=== PATIENT | female | born 1995 | race Caucasian/White ===

== ENCOUNTER 2022-04-05 16:28 | Observation (INO) | payer BC, SELFPAY ==
--- NOTE | 2022-04-05 20:38 | OBADM ---
This patient, Nilda Díaz, admitted to the OB room Labor/Delivery/Recovery 105 for observation. Patient/family oriented to hospital policies and general routines including ID bracelet, bed and alarms, visiting hours, pain management, procedures, bathroom and other care routines, personal items, smoking policy, room service/diet, and visiting hours. Patient/Family are encouraged to report perceived risks to care and to ask questions if they do not understand what they are told or what they should do.
--- NOTE | 2022-04-24 13:13 | PM.OBTRLD ---
OB - Triage/Final Diagnosis Visit Information Date of evaluation: 05/05/22 Reason for evaluation: threatened labor Comments/Additional reasons for admission: I have assessed the risk for this patient, Nilda Díaz, and determined that she would benefit from observation care.
== END 2022-04-05 20:22 | disposition home or self-care (01) ==
PROVIDERS: Admitting Provider Obstetrics & Gynecology Gynecology; Visit Provider Obstetrics & Gynecology Gynecology
DX: O47.9 False labor, unspecified (principal); Z3A.00 Weeks of gestation of pregnancy not specified
CPT/HCPCS: G0378; G0379

== ENCOUNTER 2022-04-21 04:59 | Inpatient (IN) | payer BC, SELFPAY ==
[2022-04-21] VITALS (132 sets, daily range): BP systolic 114–168; BP diastolic 67–111; PULSE 69–114; RESP 18; TEMP 36.4–37.1; O2SAT 95–100; BMI 34.2
[2022-04-21 05:45] LABS: Basophils Percent Auto 0.3 % (0.2-1.2); Eosinophils Absolute Auto 0.3 K/mm3 (0-0.3); Eosinophils Percent Auto 2.7 % (0-4.4); Hematocrit 30.6 % (37.0-47.0); Hemoglobin 9.7 g/dL (12.0-15.0); Immature Granulocyte Absolute 0.06 K/mm3 (0.00-0.031); Immature Granulocyte Percent A 0.5 % (0-0.5); Lymphocytes Absolute Auto 2.93 K/mm3 (0.9-3.2); Lymphocytes Percent Auto 24.6 % (18.3-44.2); Mean Corpuscular HGB Conc 31.7 g/dl (32-36); Mean Corpuscular Hemoglobin 26.4 pg (26-34); Mean Corpuscular Volume 83.4 fl (80-100); Monocytes Absolute Auto 0.9 K/mm3 (0.1-0.6); Monocytes Percent Auto 7.8 % (2.6-8.5); Neutrophils Absolute Auto 7.6 K/mm3 (1.3-6.7); Neutrophils Percent Auto 64.1 % (45.5-73.1); Platelet Count Result 188 k/mm3 (150-375); Red Blood Count 3.67 M/mm3 (4.2-5.4); Red Cell Distribution Width 15.2 % (11.5-14.5); White Blood Count 11.9 K/mm3 (4.5-10.0)
[2022-04-21] MEDS: LACTATED RINGERS 1,000 ML 125 ML IV CONT ×3 (05:48→12:38)
[2022-04-21] MEDS: AMPICILLIN 2 GM/NS 100 ML 2 GM/100 ML BAG IVPB (05:49)
--- NOTE | 2022-04-21 06:10 | LDADM ---
This patient, Nilda Díaz, was admitted to Labor/Delivery/Recovery 105 on 04/21/22 at 04:59. Plans for labor, pain management and were discussed with patient. Patient/family oriented to hospital policies and general routines including ID bracelet, bed and alarms, visiting hours, pain management, procedures, bathroom and other care routines, personal items, smoking policy, room service/diet and guest tray routines, security routines, and visiting hours. Patient/Family are encouraged to report perceived risks to care and to ask questions if they do not understand what they are told or what they should do. See OBIX for further documentation.
[2022-04-21] MEDS: OXYTOCIN 30 UNITS/NS 500 ML 30 UNITS/500 ML BAG IV CONT (06:19)
[2022-04-21] MEDS: LABETALOL HCL INJ 100 MG/20 ML VIAL 20 MG IV PUSH (06:44)
[2022-04-21 07:18] LABS: Alanine Aminotransferase 15 U/L (6-35); Albumin Level 3.5 g/dL (3.5-5.1); Alkaline Phosphatase 125 U/L (38-126); Anion Gap 11 mmol/L (8-16); Aspartate Amino Transferase 27 U/L (14-36); Bilirubin,Total 0.4 mg/dL (0.2-1.3); Blood Urea Nitrogen 9 mg/dL (7-17); Calcium 8.7 mg/dL (8.4-10.2); Carbon Dioxide 20 mmol/L (22-30); Chloride 105 mmol/L (98-107); Estimated CRCL calculation 170 ml/min; Estimated Glomerular Filt Rate > 60; Glucose 91 mg/dL (65-110); Potassium 3.5 mmol/L (3.4-5.0); Sodium 136 mmol/L (137-145); Uric Acid 5.2 mg/dL (2.5-7.5)
[2022-04-21 07:29] LABS: Creatinine Urine 60.9 mg/dL; Total Protein Urine Random 11 mg/dL; Ur Ttl Prot Creatinine Ratio 0.18 mg/mg (0-0.20)
[2022-04-21] MEDS: AMPICILLIN 1 GM/NS 50 ML 1 GM/50 ML BAG IVPB ×2 (09:58→14:02)
--- NOTE | 2022-04-21 11:43 | WPDOBADMIT ---
Obstetrics - Admit Note Admission Note: record reviewed. No pertinent additions to the history and/or any subsequent changes in the physical findings that are not consistent with the expected course of the were found. Additions to the history and/or subsequent changes in the physical findings follow. Pt arrived with severe range BPs. Endorses much anxiety. Treated with Labetalol 20mg IVP d/t sustained severe range BPs. BPs responded and are now normal to mild range. CBC, CMP, Uric acid, and UPC ratio all WNL. Continued anemia noted on CBC.
--- NOTE | 2022-04-21 11:46 | PM.OBPNLAB ---
Pain Control Date/time seen: 04/21/22 11:35 Pain control: tolerating well Pelvic Exam Dilation (cm): 3 (3.5) Effacement (%): 60 station: -3 Amniotic membrane status: Intact Contractions Monitor mode: External Contraction frequency: 4 (2-4) Contraction duration: 60 (60-80) Contraction pattern: Irregular Contraction phase: Contraction Contraction intensity: Moderate Status status: Category l Assessment and Plan Pitocin rate (mU/min): 16 (Decreased to 8 after AROM) Assessment: induction ongoing Plan: continuous present management Comments: CNM to bedside. Nilda is feeling some occasional mild contractions. Declines need for epidural at this time. Discussed present management of labor and offered AROM. Discussed risks and benefits and pt desires to proceed. Amniotomy performed with initally no return of fluid. Repositioned pt to semi fowlers and pt reported a small gush of fluid. Clear amniotic fluid noted with small amt of bloody show. Pitocin decreased to 8mU/min. Anticipate vaginal .
--- NOTE | 2022-04-21 12:32 | WPDANESEPP ---
Anes - Eval Pre Procedure Procedure: Labor Epidural Date/Time: 04/21/22 12:32 Surgeon: Annie Preop Diagnosis: Labor Pain Pre Op Diagnosis: IOL Patient Data Age: 26 Gender: F Height: 1.7 m Weight: 99 kg Last Vital Signs Temp 36.9 C 04/21/22 12:00 Pulse 89 04/21/22 12:31 BP 144/103 H 04/21/22 12:31 Pulse Ox 99 04/21/22 06:42 O2 Del Method Room Air 04/21/22 06:30 Allergies Allergy/AdvReac Type Severity Reaction Status Date / Time No Known Allergies Allergy Verified 04/21/22 06:20 Home Medications Medication Instructions Recorded Confirmed Type ergocalciferol (vitamin D2) 1,250 1,250 mcg PO WEEKLY 03/30/22 04/21/22 History mcg (50,000 unit) capsule (Vitamin D2) fluoxetine 10 mg tablet 10 mg PO DAILY 03/30/22 04/21/22 History labetalol 100 mg tablet 50 mg PO DAILY 03/30/22 04/21/22 History prenat.vits,jerod,qjj-moam-pvcvs 1 tablet PO DAILY 03/30/22 04/21/22 History Laboratory Tests 04/21/22 04/21/22 04/21/22 05:34 05:34 05:34 WBC 11.9 K/mm3 H K/mm3 (4.5-10.0) RBC 3.67 M/mm3 L M/mm3 (4.2-5.4) Hgb 9.7 g/dL L g/dL (12.0-15.0) Hct 30.6 % L % (37.0-47.0) MCV 83.4 fl fl (80-100) MCH 26.4 pg pg (26-34) MCHC 31.7 g/dl L g/dl (32-36) RDW 15.2 % H % (11.5-14.5) Plt Count 188 k/mm3 k/mm3 (150-375) MPV 11.0 fl H fl (7.4-10.4) Immature Gran % (Auto) 0.5 % % (0-0.5) Neut % (Auto) 64.1 % % (45.5-73.1) Lymph % (Auto) 24.6 % % (18.3-44.2) [place] % (Auto) 7.8 % % (2.6-8.5) Eos % (Auto) 2.7 % % (0-4.4) Baso % (Auto) 0.3 % % (0.2-1.2) Lymph # (Auto) 2.93 K/mm3 K/mm3 (0.9-3.2) [place] # (Auto) 0.9 K/mm3 H K/mm3 (0.1-0.6) Eos # (Auto) 0.3 K/mm3 K/mm3 (0-0.3) Baso # (Auto) 0.0 K/mm3 K/mm3 (0.0-0.1) Abs Immat Gran (auto) 0.06 K/mm3 H K/mm3 (0.00-0.031) Absolute Neuts (auto) 7.6 K/mm3 H K/mm3 (1.3-6.7) Absolute Nucleated RBC 0.0 K/mm3 K/mm3 (0.0-0.012) Nucleated RBC % 0.0 % % (0.0-0.2) Sodium Potassium Chloride Carbon Dioxide Anion Gap BUN Creatinine Estim Creat Clear Calc Estimated GFR Glucose Uric Acid Calcium Total Bilirubin AST ALT Alkaline Phosphatase Total Protein Albumin U Random Total Protein Urine Creatinine Protein/Creat Ratio 2 RPR Pending Blood Type A Positive Antibody Screen Negative 04/21/22 04/21/22 06:47 06:47 WBC RBC Hgb Hct MCV MCH MCHC RDW Plt Count MPV Immature Gran % (Auto) Neut % (Auto) Lymph % (Auto) [place] % (Auto) Eos % (Auto) Baso % (Auto) Lymph # (Auto) [place] # (Auto) Eos # (Auto) Baso # (Auto) Abs Immat Gran (auto) Absolute Neuts (auto) Absolute Nucleated RBC Nucleated RBC % Sodium 136 mmol/L L mmol/L (137-145) Potassium 3.5 mmol/L mmol/L (3.4-5.0) Chloride 105 mmol/L mmol/L (98-107) Carbon Dioxide 20 mmol/L L mmol/L (22-30) Anion Gap 11 mmol/L mmol/L (8-16) BUN 9 mg/dL mg/dL (7-17) Creatinine 0.50 mg/dL L mg/dL (0.7-1.0) Estim Creat Clear Calc 170 ml/min ml/min Estimated GFR > 60 (59 - ) Glucose 91 mg/dL mg/dL (65-110) Uric Acid 5.2 mg/dL mg/dL (2.5-7.5) Calcium 8.7 mg/dL mg/dL (8.4-10.2) Total Bilirubin 0.4 mg/dL mg/dL (0.2-1.3) AST 27 U/L U/L (14-36
[2022-04-21] MEDS: ONDANSETRON INJ 4 MG/2 ML VIAL IV PUSH (12:52)
[2022-04-21] MEDS: FAMOTIDINE 20 MG/2 ML VIAL IV PUSH (14:02)
[2022-04-21] MEDS: miSOPROStol 200 MCG TABLET 800 MCG RECTAL (15:53)
--- NOTE | 2022-04-21 16:02 | PM.OBPRVD ---
OB - Delivery Note Procedure Delivery date: 04/21/22 Events: Positive Group B Strep (GBS) Induction method: AROM and Per Pitocin Protocol Delivery augmentation: Rupture of Membranes Delivery monitor: External FHT and External Uterine Route of delivery: Episiotomy description: None Laceration Description: Superficial (inner labia minora x 2, 0.5cm and 1.5 cm. No repair required. ) Specimen: No Quantitative Blood Loss (ml): 250 Anesthesia type: Epidural Disposition: Floor Narrative: CNM called when pt complete and 0 station. Patient pushed with contractions and made quick progress to . The infant head delivered in the ROP position and a loose nuchal cord was noted. With the next push the remainder of the was delivered in a somersault maneuver. The nuchal cord was then reduced and the was placed skin to skin on the maternal abdomen. After 2 minutes of life, the cord was doubly clamped and cut. Cord blood and gases were drawn. Shortly thereafter, there was a Small gush of blood from the vagina. The patient pushed once and the placenta was delivered in [place] presentation. Rectal Cytotec was given for prevention of atony given the patient's anemia. Baby Date of : 04/21/22 Time of : 13:46 Weeks of gestation at delivery: 39 gender: Female Weight (pounds): 7 Weight (ounces): 2 presentation: vertex position: Right Occiput Posterior Placenta delivery description: Spontaneous Cord Vessel Description: 3 Vessels score one minute: 8 score five minutes: 9
[2022-04-21] MEDS: TRANEXAMIC ACID 1,000 MG/10 ML AMPUL 1000 MG IV PUSH (16:09)
--- NOTE | 2022-04-21 16:10 | PM.OBDSVD ---
DS: Admitting Diagnosis Discharge Date 04/22/22 Admitting Diagnosis at 39 weeks. GBS+ Anxiety/Depression Known palpitations Fetus with small VSD DS: Discharge Diagnosis Discharge Diagnosis (1) (normal spontaneous vaginal delivery): Code(s): O80 - Encounter for full-term uncomplicated delivery Status: Acute Assessment and Plan: Intact perineum. (2) At risk for ineffective : Code(s): Z91.89 - Other specified personal risk factors, not elsewhere classified Status: Acute Assessment and Plan: Encouraged to remain in the hospital for assistance but pt declines. Discussed resources in the hospital, office, and in the community. (3) Gestational hypertension affecting third : Code(s): O13.9 - Gestational [-induced] hypertension without significant proteinuria, unspecified trimester Status: Acute Assessment and Plan: Plan to continue labetalol 100mg PO BID. Pt to call for Bps > 160/110 or for symptoms of Preeclampsia. (4) Anemia during : Code(s): O99.019 - Anemia complicating , unspecified trimester Status: Acute Assessment and Plan: FeSO4 PO BID. No dizziness with ambulations. OB - DS: Summary Hospital Course Hospital Course: uncomplicated OB Procedures : Ultrasound OB Procedures Intrapartum: Spontaneous Vag Delivery OB Procedures: : Antibiotics Peripartum Data Delivery Method: Natural Vaginal Laceration Description: Superficial Episiotomy description: None complications: none Status at Discharge Functional status at discharge: independent ambulation Time Spent with Patient Time attestation: Total time spent providing and/or coordinating discharge services: Exam Narrative: Alert and oriented. Mood is pleasant and cooperative. Urinating without difficulty. Denies passing any large clots. Perineum with minimal edema. Const: General: no acute distress and alert Orientation/consciousness: patient oriented x3 Limitations: no limitations Resp: Effort & Inspection: normal respiratory effort Auscultation: clear to auscultation bilaterally Cardio: Rate: regular rate GI: Inspection: normal to inspection Neuro: General: patient oriented x3 Extrem: General: normal to inspection Psych: Appearance: grossly normal Mental Status: mental status grossly normal Affect: normal affect Thought process: Normal thought process present DS: Data Data Completed and Pending Labs on day of discharge: Labs from last 24 hours 04/21/22 04/21/22 04/21/22 06:47 06:47 05:34 WBC RBC Hgb Hct MCV MCH MCHC RDW Plt Count MPV Immature Gran % (Auto) Neut % (Auto) Lymph % (Auto) [place] % (Auto) Eos % (Auto) Baso % (Auto) Lymph # (Auto) [place] # (Auto) Eos # (Auto) Baso # (Auto) Abs Immat Gran (auto) Absolute Neuts (auto) Absolute Nucleated RBC Nucleated RBC % Sodium 136 L Potassium 3.5 Chloride 105 Carbon Dioxide 20 L Anion Gap 11 BUN 9 Creatinine 0.50 L Estim Creat Clear Calc 170 Estimated GFR > 60 Glucose 91 Uric Acid 5.2 Calcium 8.7 Total Bilirubin 0.4 AST 27 ALT 15 Alkaline Phosphatase 125 Total Protein 7.0 Albumin 3.5 U Random Total Protein 11 Urine Creatinine 60.9 Protein/Creat Ratio 2 0.18 RPR Blood Type A Positive Antibody Screen Negative 04/21/22 04/21/22 05:34 05:34 WBC 11.9 H RBC 3.67 L Hgb 9.7 L Hct 30.6 L MCV 83.4 MCH 26.4 MCHC 31.7 L RDW 15.2 H Plt Count 188 MPV 11.0 H Immature Gran % (Auto) 0.5 Neut % (Auto) 64.1 Lymph % (Auto) 24.6 [place] % (Auto) 7.8 Eos % (Auto) 2.7 Baso % (Auto) 0.3 Lymph # (Auto) 2.93 [place] # (Auto) 0.9 H Eos # (Auto) 0.3 Baso # (Auto) 0.0 Abs Immat Gran (auto) 0.06 H Absolute Neuts (auto)
[2022-04-21] MEDS: WITCH HAZEL 40 PADS 1 PAD TOPICAL (18:07)
[2022-04-21] MEDS: IBUPROFEN 600 MG TABLET PO (18:07)
[2022-04-21] MEDS: BENZOCAINE 20% AER SPR (*SP) 56 GM CAN 1 SPRAY TOPICAL (18:08)
[2022-04-21] MEDS: LABETALOL HCL 100 MG TABLET PO (19:31)
--- NOTE | 2022-04-21 19:37 | OBPPTRN ---
Patient transferred to post room # 282 via (wheelchair). Support person present. Oriented to unit, room, information board, rooming in, admission packet and security measures. Patient verbalizes understanding.
[2022-04-21] MEDS: ACETAMINOPHEN 325 MG TABLET 650 MG PO (21:00)
[2022-04-22] VITALS (7 sets, daily range): BP systolic 124–153; BP diastolic 81–99; PULSE 68–86; RESP 16–18; TEMP 36.6–37.1; O2SAT 98–100
[2022-04-22] MEDS: IBUPROFEN 600 MG TABLET PO ×3 (00:26→14:20)
[2022-04-22] MEDS: ACETAMINOPHEN 325 MG TABLET 650 MG PO ×2 (04:01→11:22)
[2022-04-22 04:58] LABS: Hematocrit 28.2 % (37.0-47.0); Hemoglobin 8.8 g/dL (12.0-15.0)
[2022-04-22] MEDS: MULTIVIT/MIN/PREN/FOL AC/IRON TABLET 1 TAB PO (08:23)
[2022-04-22] MEDS: POLYSACCHARIDE IRON COMPLEX 150 MG CAPSULE PO ×2 (08:24→16:31)
[2022-04-22] MEDS: DOCUSATE SODIUM 100 MG CAPSULE PO ×2 (08:24→16:31)
[2022-04-22] MEDS: LABETALOL HCL 100 MG TABLET PO ×2 (08:38→16:31)
--- NOTE | 2022-04-22 11:39 | PM.OBPNVD ---
OB - PN: Subj Subjective Date/time seen: 04/22/22 11:39 Patient comments: no complaints and pain well controlled feeding status: breast and bottle feeding Narrative: Reports infant hungry and too frustrated to latch at times. Pumping and getting return of colostrum. Supplementing with formula. OB - PN: Obj Data Labs CBC & Chem 7: 04/22/22 04:47 04/21/22 06:47 Labs: Laboratory Results - last 24 hr 04/22/22 04:47 Hgb 8.8 L Hct 28.2 L OB - PN A/P Assessment and Plan (1) Gestational hypertension affecting third : Code(s): O13.9 - Gestational [-induced] hypertension without significant proteinuria, unspecified trimester Status: Acute Assessment and Plan: BPs normal to mild range. Plan to have pt check BID at home. Continue Labetalol 100mg PO BID. BP check at PP visit at hospital and one week in the office. (2) At risk for ineffective : Code(s): Z91.89 - Other specified personal risk factors, not elsewhere classified Status: Acute Assessment and Plan: Encouraged remaining in the hospital for support. Pt declined. Discussed resources at the hospital, office, and in the community. (3) (normal spontaneous vaginal delivery): Code(s): O80 - Encounter for full-term uncomplicated delivery Status: Acute Plan day: 1 Plan: discharge home Comments: Strongly desires discharge home today. Time Spent With Patient Time: Total time spent is greater than 50% in coordination of care (as documented) at patient's floor/unit and/or counseling patient: Review of Systems Review of Systems: All systems reviewed & are unremarkable except as noted in HPI and below Exam Narrative: Alert and oriented. Mood is pleasant and cooperative. Urinating without difficulty. Denies passing any large clots. Perineum with minimal edema. Const: General: no acute distress and alert Orientation/consciousness: patient oriented x3 Limitations: no limitations Resp: Effort & Inspection: normal respiratory effort Auscultation: clear to auscultation bilaterally Cardio: Rate: regular rate GI: Inspection: normal to inspection Neuro: General: patient oriented x3 Extrem: General: normal to inspection Psych: Appearance: grossly normal Mental Status: mental status grossly normal Affect: normal affect Thought process: Normal thought process present
--- NOTE | 2022-04-22 19:17 | PC.NURSE ---
Patient left unit with spouse and infant accompanied by this RN to car waiting in the [address]. Discharge teaching reviewed. All questions answered.
[2022-04-23 06:27] LABS: Rapid Plasma Reagin Non-Reactive (NonReactive)
[2022-04-24 14:19] VITALS: BP 153/91; PULSE 70; RESP 20; TEMP 36.6; O2SAT 100
== END 2022-04-22 19:17 | disposition home or self-care (01) | DRG 807 ==
LOC: ANHLDR 16:13 → ANHOB2 19:47
PROVIDERS: Advanced Practice Midwife; Admitting Provider Obstetrics & Gynecology Gynecology; Visit Provider Obstetrics & Gynecology Gynecology
DX: O99.824 Streptococcus B carrier state complicating childbirth (principal); Z37.0 Single live birth; O13.4 Gestational [pregnancy-induced] hypertension without significant proteinuria, complicating childbirth; O99.02 Anemia complicating childbirth; O70.0 First degree perineal laceration during delivery; O69.81X0 Labor and delivery complicated by cord around neck, without compression, not applicable or unspecified; O62.3 Precipitate labor; Z3A.39 39 weeks gestation of pregnancy
CPT/HCPCS: 36415; 80053; 82570; 84156; 84550; 85014; 85018; 85025; 86592; 86850; 86900; 86901; A9270; J0290; J2405; J2590; J2795; J7120

== ENCOUNTER 2022-04-24 15:46 | Outpatient (CLI) | payer BC, SELFPAY ==
[2022-04-24 16:18] LABS: Basophils Absolute Auto 0.1 K/mm3 (0.0-0.1); Basophils Percent Auto 0.5 % (0.2-1.2); Eosinophils Absolute Auto 0.6 K/mm3 (0-0.3); Eosinophils Percent Auto 5.4 % (0-4.4); Hemoglobin 9.6 g/dL (12.0-15.0); Immature Granulocyte Absolute 0.04 K/mm3 (0.00-0.031); Immature Granulocyte Percent A 0.4 % (0-0.5); Lymphocytes Absolute Auto 3.09 K/mm3 (0.9-3.2); Lymphocytes Percent Auto 27.3 % (18.3-44.2); Mean Corpuscular Hemoglobin 26.4 pg (26-34); Mean Corpuscular Volume 85.4 fl (80-100); Mean Platelet Volume 10.6 fl (7.4-10.4); Monocytes Absolute Auto 0.8 K/mm3 (0.1-0.6); Neutrophils Absolute Auto 6.7 K/mm3 (1.3-6.7); Neutrophils Percent Auto 59.4 % (45.5-73.1); Platelet Count Result 222 k/mm3 (150-375); Red Blood Count 3.63 M/mm3 (4.2-5.4); Red Cell Distribution Width 15.6 % (11.5-14.5); White Blood Count 11.3 K/mm3 (4.5-10.0)
[2022-04-24 16:28] VITALS: BP 151/95; PULSE 68
[2022-04-24 16:28] LABS: Alanine Aminotransferase 16 U/L (6-35); Albumin Level 3.9 g/dL (3.5-5.1); Alkaline Phosphatase 101 U/L (38-126); Anion Gap 10 mmol/L (8-16); Aspartate Amino Transferase 23 U/L (14-36); Bilirubin,Total 0.3 mg/dL (0.2-1.3); Blood Urea Nitrogen 11 mg/dL (7-17); Carbon Dioxide 24 mmol/L (22-30); Chloride 103 mmol/L (98-107); Estimated Glomerular Filt Rate > 60; Glucose 92 mg/dL (65-110); Potassium 3.8 mmol/L (3.4-5.0); Sodium 137 mmol/L (137-145); Uric Acid 5.7 mg/dL (2.5-7.5)
[2022-04-24 16:31] VITALS: BP 154/94; PULSE 65
[2022-04-24 16:46] VITALS: BP 156/89; PULSE 60
--- NOTE | 2022-04-24 17:03 | PC.NURSE ---
1702--Reported labs and VS to Azeb Armstrong. DC orders given.
== END 2022-04-24 17:04 | disposition home or self-care (01) ==
LOC: ANHOBOP 15:54 → ANHOBPP 15:54
PROVIDERS: Visit Provider Advanced Practice Midwife
DX: O13.9 Gestational [pregnancy-induced] hypertension without significant proteinuria, unspecified trimester (principal); Z3A.00 Weeks of gestation of pregnancy not specified
CPT/HCPCS: 36415; 80053; 84550; 85025; 99199

== ENCOUNTER 2024-07-20 15:39 | Outpatient (CLI) | payer BC, SELFPAY ==
--- NOTE | ~2024-07-20 | US_ITS ---
EXAMINATION: US OB transvaginal DATE: 07/20/2024 22:13 MANUFACTURING ENGINEER INDICATION: Dating COMPARISON: 04/08/2024 TECHNIQUE: Real-time transabdominal and transvaginal obstetric ultrasound. FINDINGS: 4 para 3 Estimated date of delivery by last menstrual period is 02/16/2025 The uterus measures 10.2 x 5.3 x 6.3 cm. A gestational sac is identified within the fundus of the uterus. A pole is identified, with a crown-rump length that measures 0.6 cm, corresponding to an approx imate gestational age of 6 weeks and 3 days. Adjacent to the gestational sac is a small focus of decreased attenuation measuring 5 mm in greatest dimension for which a small subchorionic hemorrhage is suspected. cardiac activity is identified at a rate of 150 bpm. The right ovary measures 2.1 x 1.8 x 2.6 cm. Despite prolonged interrogation, the left ovary was not visualized. Estimated date of delivery by ultrasound is 03/12/2025 IMPRESSION: Single intrauterine gestation with an approximate gestational age of 6 weeks and 3 days, with c ardiac activity identified. Small subchorionic hemorrhage measuring 5 mm in greatest dimension, for which follow-up is suggested. Reviewed, dictated and finalized at location A. FACTURING ENGINEER IMPRESSION: Single intrauterine gestation with an approximate gestational age of 6 weeks an d 3 days, with cardiac activity identified. Small subchorionic hemorrhage measuring 5 mm in greatest dimension, for which f ollow-up is suggested.
== END 2024-07-20 15:40 | disposition home or self-care (01) ==
PROVIDERS: Visit Provider Nurse Practitioner Women's Health
DX: Z36.87 Encounter for antenatal screening for uncertain dates (principal)
CPT/HCPCS: 76817

== ENCOUNTER 2025-04-23 10:39 | Outpatient (CLI) | payer BC, SELFPAY ==
--- NOTE | ~2025-04-23 | US_ITS ---
EXAMINATION: US OB transvaginal DATE: 04/23/2025 11:05 INDICATION: Gestational dating TECHNIQUE: Real-time transabdominal and transvaginal obstetric ultrasound. FINDINGS: No prior studies for comparison. The uterus measures 12.1 x 6.8 times centimeters. There is an intrauterine gestational sac, with pole identified. The crown rump length measures 2.14 cm, which correlates with a estimated gestational age of 8 weeks 5 days. heart tones are identified measuring 169 bpm. Ovaries not visualized. IMPRESSION: 1. SL IUP with an EGA of 8 weeks, 5 days (EDC by current ultrasound of 11/28/2025). Reviewed, dictated and finalized at location O. IMPRESSION: 1. SL IUP with an EGA of 8 weeks, 5 days (EDC by current ultrasound of ).
== END 2025-04-23 10:40 | disposition home or self-care (01) ==
DX: Z36.87 Encounter for antenatal screening for uncertain dates (principal)
CPT/HCPCS: 76817

== ENCOUNTER 2025-06-28 10:46 | Outpatient (CLI) | payer BC, SELFPAY ==
--- NOTE | ~2025-06-28 | US_ITS ---
EXAMINATION: US OB /maternal detail DATE: 06/28/2025 11:18 INDICATION: anatomic survey. TECHNIQUE: Real-time ultrasound of the pelvis was performed. COMPARISON: Ultrasound 04/23/2025 FINDINGS: There is a single living fetus in breech presentation. The placenta is posterior, 2.9 cm from the cervix. heart rate is 143 beats per minute (bpm). The cervical length is 4.0 cm on transabdominal images, which is normal. The amniotic fluid volume is subjectively normal. The following biometric data were obtained: Biparietal diameter (BPD): 4.1 cm; head circumference (HC): 15.8 cm; abdominal circumference (AC): 13.0 cm; femur length (FL): 2.6 cm. These measurements are concordant. Estimated weight is 234 g +/- 35 g, which correlates with the 56th percentile when 11/28/2025 is used as estimated date of delivery. As single measurements, these parameters are each equal to the following estimated gestational ages: BPD: 18 weeks 2 days. HC: 18 weeks 5 days. AC: 18 weeks 4 days. FL: 18 weeks 0 days. estimated gestational age based solely on measurements from this exam is 18 weeks 3 days +/- 1 weeks 2 days. The cerebral ventricles, cerebellum, cisterna magna, nuchal fold, lip, and spine are normal. The heart is normal. The diaphragm, stomach, kidneys, and bladder are normal. There are two umbilical arteries to yield a 3-vessel cord. The cord insertion is normal. IMPRESSION: 1. Single living fetus in breech presentation. 2. Estimated weight is 234 g +/- 35 g, which correlates with the 56th percentile when 11/28/2025 is used as estimated date of delivery. This date was set by ultrasound on 04/23/2025. 3. Normal anatomic survey. Reviewed, dictated and finalized at location E. UCT ASSURANCE ENGINEER IMPRESSION: 1. Single living fetus in breech presentation. 2. Estimated weight is 234 g +/- 35 g, which correlates with the 56th pe rcentile when 11/28/2025 is used as estimated date of delivery. This date was se t by ultrasound on 04/23/2025. 3. Normal anatomic survey.
== END 2025-06-28 10:47 | disposition home or self-care (01) ==
LOC: MICIMG 10:47
DX: Z36.9 Encounter for antenatal screening, unspecified (principal); Z3A.18 18 weeks gestation of pregnancy
CPT/HCPCS: 76805